=== PATIENT | female | born 1925 | race Caucasian/White ===

== ENCOUNTER 2017-01-31 14:41 | Inpatient (IN) | payer MEDICARE, BC ==
--- NOTE | ~2017-01-31 | CN ---
Consultation Report [facility] [address] [place]. [address] NAME: MARCO A CM : [birth year] STATUS : ADM IN PAT#: [id number] AGE: 89 ADM/REG DATE : 01/31/17 MR#: [id number] REPORT SERV DATE: 02/01/17 DICTATED BY: DATE: REPORT STATUS : Draft TRANSCRIBED BY: MODL DATE: 02/01/17 NEUROLOGY CONSULTATION DATE OF CONSULTATION: 02/01/2017 REASON FOR CONSULT: Left lower extremity weakness, concern for possible stroke. HISTORY OF PRESENT ILLNESS: This is an 89-year-old female who presented to [facility] on 01/31/2017 secondary to acute onset of left lower extremity weakness and presyncopal type of sensation. The patient was playing rummy with friends and when standing up, was noted to have acute difficulties with the left lower extremity, could not move the left lower extremity, but denies any weakness. The patient also was noted to have abnormal sensation, dizzy, felt as if she was about to pass out. Also, the patient never lost consciousness. The patient's symptom resolved after roughly one minute. Bobbin Trucker was otherwise notified and upon arrival, the patient was noted to have apparent bradycardia with heart rate reportedly to be in the 40s. The patient does report a history of arrhythmia as well as bradycardia. Previously evaluated by outside pet care assistant and was noted to have some kind of long-term monitoring, although patient is not aware of the results. The patient has not had any followup with pet care assistant and at baseline, was not taking any anticoagulation. The patient does report a history of "mini-stroke" in the past happened around in 2015, for which the patient was subsequently evaluated at [facility]. The patient afterwards was reported to be taking 325 mg aspirin and reports compliance with aspirin, but does not appear to be taking any Lipitor at home. The patient denies any other symptoms. The patient's previous "mini-stroke" involved left upper extremity weakness which subsequently resolved prior to the hospitalization. No recent history of fever, chills, nausea, vomiting, chest pain, or shortness of breath was otherwise noted. REVIEW OF SYSTEMS: Negative except for those mentioned in the HPI. PAST MEDICAL HISTORY: Significant for hypertension, anxiety, gastroesophageal reflux disease, transient ischemic attack, arrhythmia, prior history of bradycardia with history of evaluation by Holter monitor with outpatient pet care assistant. Also, the patient is unaware of the results of Holter monitoring. The patient has not followed up recently with the pet care assistant. FAMILY HISTORY: Significant for brain tumor as well as cardiac issues. SOCIAL HISTORY: Denies tobacco, alcohol, or recreational drug usage. ALLERGIES: THE PATIENT REPORTS ALLERGY TO PENICILLIN. MEDICATIONS AT HOME: The patient takes aspirin as well as Valium, vitamin D, hydrochlorothiazide, Cozaar, metoprolol, and Prilosec. Consultation Report [facility] [id number] [place]. [address] NAME: MARCO A CM : [birth year] STATUS : ADM IN PAT#: [id number] AGE: 89 ADM/REG DATE : 01/31/17 MR#: [id number] REPORT SERV DATE: 02/01/17 DICTATED BY: DATE: REPORT STATUS : Draft TRANSCRIBED BY: GEOFF DATE: 02/01/17 PHYSICAL EXAMINATION: VITAL SIGNS: At the time of evaluation, the patient overnight was noted to have vital signs with T-max of 98.1, heart rates of 64-100, respirations of 16-19 and blood pressure of 151 to 206 over 66 to 96. GENERAL: The patient is well developed, well nourished, in no acute distress. CARDIOVASCULAR: Irregular. Otherwise, no carotid bruits were auscultated. PULMONARY: Clear to auscultation bilaterally. NEUROLOGICAL EXAMINATION: The patient is alert and oriented to person, place, year, and month. Follows simple and 2-step commands. Mild dysarthria. No aphasia was otherwise noted. The patient reports dysarthria appeared to be mildly worse with prolonged talking with the patient reports spastic-type of sensation with feeling of throat closing up when the patient talks for prolonged period of time. The patient otherwise was noted to have intact registration, mild difficulties with recall. No aphasia was noted. Cranial nerves 2 through 12, pupils equal, round, and reactive to light. Extraocular eye movement was noted to be intact with intact blink to threat responses bilaterally. The patient reports symmetrical facial sensation, was noted to have questionable decreased nasolabial fold on the left. Symmetrical facial expression. Midline tongue. Normal palatal movement. Decreased hearing in the left ear which according to the patient has been chronic. Mildly decreased hearing in the right ear. Patient demonstrated 5/5 bilateral upper and lower extremity strength at the time of evaluation with the patient noted to have mild posture tremor, left greater than right, and question of possible asterixis in the left upper extremity. No cogwheel rigidity was otherwise noted. Normal bcxdhy-er-bzrl examination without ataxia. Gait was not evaluated at the time of evaluation. LABORATORY STUDIES: Demonstrated sodium 145, potassium 4.0, chloride 112, bicarb 23, BUN 27, creatinine 1.14, glucose of 107, calcium of 8.1, magnesium 2.2. At the time of evaluation, the patient was noted to have cholesterol of 180, HDL 43, LDL of 110, and triglyceride of 139. Serum TSH of 1.84. Hemoglobin A1c of 5.7. White blood cell count of 6.9, hemoglobin of 11.6, hematocrit of 34.0, and platelet count of 227. CT scan of the brain demonstrated no acute process with MRI of the brain demonstrated no acute process. Generalized atrophy was seen. MRA of the head and neck demonstrated no significant stenosis. Internal carotid artery demonstrated no significant blockage or stenosis. Echocardiogram is pending. IMPRESSION: 1. Left lower extremity weakness. 2. Presyncopal episode. Patient's symptoms since resolved with the patient reports presyncopal type of sensation associated with left lower extremity weakness with the patient's heart rates reported to be around 40s upon EMS arrival. The patient does have history of bradycardia and arrhythmia, question of cardiac-related events. We are recommending increasing aspirin back to 325 mg p.o. daily which the patient was on at baseline. We will start the patient on Lipitor 40 mg p.o. at bedtime. Echocardiogram Consultation Report [address] [place]. [address] NAME: MARCO A CM : [birth year] STATUS : ADM [facility]#: [id number] AGE: 89 ADM/REG DATE : 01/31/17 MR#: [id number] REPORT SERV DATE: 02/01/17 DICTATED BY: DATE: REPORT STATUS : Draft TRANSCRIBED BY: GEOFF DATE: 02/01/17 is pending. We would like Cardiology to evaluate for repeat Holter monitor versus possible loop recorder. Otherwise, we will also check orthostatic vitals every shift secondary to the patient's reports of difficulty talking with prolonged speech. We will obtain myasthenia gravis panel as well. PLAN: 1. Increase aspirin to 325 mg p.o. daily. 2. Lipitor 40 mg p.o. at bedtime. 3. Echocardiogram which is pending. 4. Ammonia, vitamin B12, rheumatoid factor, as well as myasthenia gravis panel with morning labs. 5. Question of Holter monitor versus loop recorder. [facility]/MODL Jose Chavez MD / [id number] CC: DO REJI Dutton MUHAMMAD
--- NOTE | ~2017-01-31 | DS ---
Discharge Summary [facility] [address] [place]. [address] NAME: MARCO A CM : [birth year] STATUS : DIS IN PAT#: [id number] AGE: 89 ADM/REG DATE : 01/31/17 MR#: [id number] REPORT SERV DATE: 02/03/17 DICTATED BY: DANIELLE RAI DATE: 02/02/17 REPORT STATUS : Draft TRANSCRIBED BY: MODL DATE: 02/02/17 ADMISSION DATE: 01/31/2017 DISCHARGE DATE: 02/02/2017 HOSPITAL COURSE: An 89-year-old female with known history of TIA in the past, left upper extremity weakness that had resolved, known history of GERD, hypertension, unclear arrhythmia, and history of supposed bradyarrhythmia. Holter monitor by carpenter general in [place], apparently was reportedly benign. Known surgical history, hysterectomy and eye surgery. The patient comes in with left leg weakness and thought to have had bradycardia in the 40s. CT of the brain did not show any acute pathology, seen to have some PACs with telemetry here initially. She was evaluated by Cardiology given this possible inappropriate bradycardia, for which the patient was stated she became a bit confused while she was playing cards at a [facility] home. She stood up and stumbled and felt a bit dizzy. She was concerned for bradycardia, but only documented stress, sinus rhythm with PACs, reasonable rate of 70 beats per minute. Cardiology was not sure this is related to symptomatic bradycardia. As a result, to rule out any stroke pathology regarding her dizziness, the patient had an MRI after CT was negative. No acute pathology except moderate diffuse cerebral involutional changes, prominent perivascular space in inferior right basal ganglia. She also had an MRA of the neck as well, within normal limits. Given this inappropriate bradycardia, AV node dysfunction, had an echocardiogram done which showed an EF of 65%. Normal RV function and size. No valvulopathy. Bubble study was negative; however, this is a poor quality film due to acoustic windows. Her left atrium was normal size and her right atrium was also normal size. As a result, the patient does have a 24-hour Holter. Follow up with PCP as an outpatient. Cardiology signed off. The patient was seen to be significantly orthostatic that likely is contributing. As a result, she is taking at least 2 minutes to go from a supine to sitting and then sitting to standing position. She needs to be worked up for autonomic neuropathy as an outpatient. Her blood pressure should be 130 to 140 given her risk of orthostasis associated syncope. The patient is amenable for discharge, and in fact she wants to go home immediately. As a result, discharge medications will be: 1. Aspirin enteric coated 81 p.o. daily. 2. Vitamin D home dose. 3. Cozaar 50 p.o. daily. Increased from home dose. 4. Metoprolol tartrate 25 p.o. b.i.d. 5. Multivitamin tablet p.o. daily. 6. Prilosec home dose. 7. Valium p.r.n. We would try to wean that off as an outpatient given the risk of orthostasis worsening. She no longer will be given HCTZ as an outpatient.. CONSULTS: Cardiology. PROCEDURES: Echocardiogram. Discharge Summary [address] [address] NAME: MARCO A CM : [birth year] STATUS : DIS IN PAT#: [id number] AGE: 89 ADM/REG DATE : 01/31/17 MR#: [id number] REPORT SERV DATE: 02/03/17 DICTATED BY: DANIELLE RAI DATE: 02/02/17 REPORT STATUS : Draft TRANSCRIBED BY: GEOFF DATE: 02/02/17 All questions were answered. It took well over 30 minutes to do. VERENICE/GEOFF Danielle Rai DO / [id number] CC: DO REJI Dutton MUHAMMAD
--- NOTE | ~2017-01-31 | HP ---
History And Physical [facility] [address] [place]. [address] NAME: MARCO A CM : [birth year] STATUS : ADM IN [facility]#: [id number] AGE: 89 ADM/REG DATE : 01/31/17 MR#: [id number] REPORT SERV DATE: 02/01/17 DICTATED BY: PATIENCE HASTINGS DATE: 01/31/17 REPORT STATUS : Draft TRANSCRIBED BY: GEOFF DATE: 01/31/17 DATE OF ADMISSION: 01/31/2017 CHIEF COMPLAINT: Left leg weakness. HISTORY OF PRESENT ILLNESS: This is an 89-year-old female with past medical history of hypertension and TIAs for which the patient states for her last TIA, she had left upper extremity weakness, which resolved. However, the patient drove herself to [facility]. She lives alone and while there, she was playing rummy with some colleagues. The patient states that she stood up to ambulate to the restroom and felt her left foot felt funny, felt weak, and she felt as though if she would take another step, she would fall or pass out. The patient states that her symptoms lasted for approximately one minute. EMS was called. The patient states that she had no dizziness, but had a strange feeling in her head and also felt shaky. She denied any chest pain or shortness of breath, but did have some palpitations. The patient states that her occurrences began around 10:30 or 11 o'clock this morning. She was brought by EMS, however, the patient stated en route she did have some bradycardia in the 40s, blood pressure was 168/89. The patient did not have any recurrences of her symptoms. She was brought to [facility] ER and was seen by Dr. Byers, who ordered CT of the brain that showed no acute findings, but the patient was found to have an arrhythmia, some junctional rhythm with occasional bradycardia, however, currently heart rates ranging 70-90, and the hospitalist was called to admit the patient to the hospital. The patient has family members including the son and several daughters and [id number] at bedside assisting with the patient's history. The patient states that approximately a year ago, the patient was diagnosed with irregular heart rhythm and seen by a big data lead in [place] by the name of Dr. Morales. She was given Holter monitor and diagnosed with occasional bradycardia and then tachycardia, but later, the patient was discharged from the big data lead office stating the patient did not require any more treatment, but was placed on metoprolol per patient's history. The patient denied any subjective fever or chills. No constipation. No diarrhea. REVIEW OF SYSTEMS: Please refer to HPI. PAST MEDICAL HISTORY: History of hypertension, GERD, TIA, arrhythmia, bradycardia, had a Holter monitor by big data lead in [place] for which the patient is unsure of the name, but states it is Dr. Morales. PAST SURGICAL HISTORY: Hysterectomy and eye surgery. SOCIAL HISTORY: No tobacco. Drinks occasional one to two small wine glasses every other week. Does not use any assistive devices, still currently driving. FAMILY HISTORY: Brain tumor in sibling. Also, her biological father had unknown cardiac problems. History And Physical [address] [address] NAME: MARCO A CM : [birth year] STATUS : ADM IN [facility]#: [id number] AGE: 89 ADM/REG DATE : 01/31/17 MR#: [id number] REPORT SERV DATE: 02/01/17 DICTATED BY: PATIENCE HASTINGS DATE: 01/31/17 REPORT STATUS : Draft TRANSCRIBED BY: GEOFF DATE: 01/31/17 ALLERGIES: PENICILLIN. HOME MEDICATIONS: Include valium 5 mg p.o. q.h.s. p.r.n., vitamin D 50,000 units p.o. q. Tuesday, hydrochlorothiazide 25 mg p.o. daily, losartan 25 mg p.o. daily, metoprolol succinate ER 25 mg p.o. b.i.d., Prilosec 40 mg p.o. daily. PHYSICAL EXAMINATION: VITAL SIGNS: Temperature of 98.1, blood pressure 162/70 with a pulse of 90, respiration of 19, and saturating 98% on room air. GENERAL: The patient is alert and oriented, currently in no distress, well groomed, has on makeup, lipstick. HEENT: Pupils equal, round, and reactive to light. Extraocular muscles are intact. Anicteric sclera. CARDIOVASCULAR: S1 and S2, occasional ectopic beat. No appreciated rubs or gallops. RESPIRATORY: Clear to auscultation bilaterally. No wheezes or crackles. No signs of tachypnea. ABDOMEN: Positive bowel sounds. Soft, nontender. No rebound. No fluid wave. No distention. EXTREMITIES: Warm, bilateral lower extremities pulses. No edema. NEURO: Cranial nerves II through XII grossly intact with 4/5 upper and lower extremity strength bilaterally. No neuro focal deficits. SKIN: Poor skin turgor, dry. DATA: EKG noted as some junctional rhythm. No ST elevation with a ventricular rate of 62. LABORATORY DATA: Sodium 141, potassium 4.2, chloride 107, bicarbonate of 25, BUN of 32 with a creatinine of 1.19 with a glucose of 91, magnesium 1.8, T bilirubin of 0.3, alkaline phosphatase of 74, ALT of 15, AST of 15, and troponin less than 0.02. White count of 8.8 with hemoglobin of 12.5, platelet count of 279. INR of 1.1. UA with a specific gravity of 1.008. Negative protein and negative leukocyte esterase, negative nitrites, 1 white blood cell. ASSESSMENT AND PLAN: 1. Transient ischemic attack. 2. Presyncope. 3. Arrhythmia. 4. Hypertension. 5. Acute kidney injury. 6. Hypomagnesemia. We will check MRI/MRA of the brain and neck and check a fasting lipid panel, admit to cardiac telemetry. Continue with neuro checks and also was given aspirin. Also ER physician is to consult Neurology and notify them of the patient's admission and for evaluation. Also, we will replace the patient's magnesium and consult Cardiology for her known arrhythmia. Also, we will give IV fluids for mild acute kidney injury and hold her hydrochlorothiazide. With discussion with the patient her code status, initially the History And Physical [address] [address] NAME: MARCO A CM : [birth year] STATUS : ADM IN [facility]#: [id number] AGE: 89 ADM/REG DATE : 01/31/17 MR#: [id number] REPORT SERV DATE: 02/01/17 DICTATED BY: PATIENCE HASTINGS DATE: 01/31/17 REPORT STATUS : Draft TRANSCRIBED BY: GEOFF DATE: 01/31/17 patient was DNR/DNI, then changed her mind to full code. Dr. Byers, ER physician has consulted Dr. Mercedes as well as Neurology and Dr. Moise, Cardiology and has updated the specialist. MADI/MODL Patience Hastings M.D. / [id number] CC: Primitivo Doe MUHAMMAD
--- NOTE | ~2017-01-31 | CN ---
Consultation Report [facility] [address] [place]. [address] NAME: MARCO A CM : [birth year] STATUS : ADM IN [facility]#: [id number] AGE: 89 ADM/REG DATE : 01/31/17 MR#: [id number] REPORT SERV DATE: 02/01/17 DICTATED BY: JOSH SALEH DATE: 01/31/17 REPORT STATUS : Draft TRANSCRIBED BY: MODLinda DATE: 01/31/17 CARDIOVASCULAR CONSULTATION DATE OF CONSULTATION: 01/31/2017 CHIEF COMPLAINT: Confusion, bradycardia, irregular heartbeat. HISTORY OF PRESENT ILLNESS: Ms Cm is an 89-year-old woman with a history of premature atrial contractions, who was placed on Toprol-XL 25 mg twice a day several years ago by honey extractor she has seen only once or twice. She was playing cards with people at her halfway home. She evidently became a bit confused. She stood up and stumbled and felt a bit dizzy. She did not actually have a syncopal spell. There was some concern about bradycardia, but the only documented strips are sinus rhythm with premature atrial contractions at a reasonable rate of 70 beats per minute. No chest pain. PAST MEDICAL HISTORY: 1. Reported history of TIA. 2. Premature atrial contractions as above. 3. Hypertension. SOCIAL HISTORY: She does not smoke or drink alcohol. FAMILY HISTORY: There is no family history of early coronary disease. ALLERGIES: INCLUDE PENICILLIN. MEDICATIONS: Include Valium as needed, vitamin D, hydrochlorothiazide 25 mg once a day, Cozaar 25 mg daily, metoprolol extended release 25 twice a day, Prilosec. REVIEW OF SYSTEMS: A complete review of systems was obtained, which is negative in detail except as mentioned above in the HPI. PHYSICAL EXAMINATION: BLOOD PRESSURE: 130/70. PULSE: 70 and slightly irregular. RESPIRATIONS: 14. GENERAL: Comfortable in no acute distress. HEENT: Anicteric. No xanthelasma. Lips without cyanosis. NECK: No JVD. Carotids 2+ and symmetric. No carotid bruits. LUNGS: CTA bilaterally. No wheezes or rhonchi. No accessory muscle use. COR: RRR. Normally placed PMI. Normal S1 and S2. No murmurs, rubs or gallops. ABD: Soft, nontender, nondistended. Normal bowel sounds. No abdominal bruits. EXT: No clubbing, cyanosis or edema 2+ and symmetric distal pulses. SKIN: Warm. Dry. No venous stasis changes. MS: No kyphosis. Consultation Report [facility] [address] [place]. [address] NAME: MARCO A CM : [birth year] STATUS : ADM IN PAT#: [id number] AGE: 89 ADM/REG DATE : 01/31/17 MR#: [id number] REPORT SERV DATE: 02/01/17 DICTATED BY: JOSH SALEH DATE: 01/31/17 REPORT STATUS : Draft TRANSCRIBED BY: MODL DATE: 01/31/17 NEURO/PSYCH: Oriented x3. No anxiety or depression. LABORATORY STUDIES: White count of 8.8, hematocrit of 37, creatinine of 1.19, troponin of less than 0.02, INR of 1.1. EKG: A 12-lead EKG shows sinus rhythm with frequent premature atrial contractions in a pattern of bigeminy, heart rate 62 beats per minute. Nonspecific T-wave abnormalities noted. IMPRESSION: This is an 89-year-old woman with some dizziness, mechanical fall, and presyncope. I am not sure that this is related to symptomatic bradycardia. Her EKGs only show premature atrial contractions. I agree with plans for an echocardiogram and further telemetry monitoring. We will hold her beta-tesfaye in the short term. CYNTHIA/GEOFF Josh Saleh M.D. / [id number] CC: Primitivo Doe MUHAMMAD
[2017-01-31 15:37] LABS: ASCORBIC ACID (UR NOT ORDER) NEG (NEG); BILIRUBIN, URINE NEGATIVE (NEG); ER URINALYSIS TAT 0 Hrs 13 Mins; KETONE, URINE NEGATIVE (NEG); LEUKOCYTE ESTERASE(NOT OR NEG (NEG); NITRITE (URINE) NEG (NEG); WBC (NOT ORDERED) (RFLEX) 1 (0-5)
[2017-01-31 15:48] LABS: BASOPHILS 0.2 %; BASOPHILS ABSOLUTE 0.02 10/3/uL (0.0-0.16); EOSINOPHILS 1.4 %; EOSINOPHILS ABSOLUTE 0.12 10/3/uL (0.0-0.53); ER CBC TAT 0 Hrs 08 Mins; HEMOGLOBIN 12.5 g/dL (12.0-16.0); IMMATURE GRANULOCYTES 0.2 %; IMMATURE GRANULOCYTES ABSOLUTE 0.02 10/3/uL (0.0-0.11); LYMPHOCYTES 24.8 %; LYMPHOCYTES ABSOLUTE 2.18 10/3/uL (0.67-4.30); MEAN CORPUS HGB CONC 33.8 g/dL (32.0-36.0); MEAN CORPUSCULAR HEMOGLOB 30.8 pg (26.0-34.0); MEAN CORPUSCULAR VOLUME 91.1 fL (80-100); MEAN PLATELET VOLUME 10.3 fL (9.2-13.0); MONOCYTES 7.2 %; MONOCYTES ABSOLUTE 0.63 10/3/uL (0.21-1.20); NEUTROPHILS 66.2 %; NEUTROPHILS ABSOLUTE 5.81 10/3/uL (2.02-8.40); PLATELET COUNT 279 10/3/uL (150-400); RBC DISTRIBUTION WIDTH 12.9 % (12.0-16.0); RED CELL COUNT 4.06 10/6/uL (4.0-5.6); WHITE BLOOD CELLS 8.8 10/3/uL (4.5-10.5)
[2017-01-31 15:49] LABS: MANUAL DIFF NO %
[2017-01-31 16:04] LABS: A/G RATIO 0.9 (0.7-1.9); ALBUMIN 3.2 G/DL (3.5-5.0); ALKALINE PHOSPHATASE 74 U/L (45-117); BUN (BLOOD UREA NITROGEN) 32 MG/DL (6-23); CALCIUM, SERUM 8.6 MG/DL (8.5-10.4); CHLORIDE, SERUM 107 MMOL/L (96-112); CO2 (CARBON DIOXIDE) 25 MMOL/L (24-34); CREATININE 1.19 MG/DL (0.55-1.02); GFR AFRICAN AMERICAN 47 ML/MIN (>=60); GFR NON AFRICAN AMERICAN 40 ML/MIN (>=60); GLOBULIN 3.7 G/DL (2.5-4.1); GLUCOSE, SERUM 91 MG/DL (60-99); POTASSIUM, SERUM 4.2 MMOL/L (3.5-5.3); SGOT(AST) 15 U/L (5-40); SGPT(ALT) 15 U/L (5-65); SODIUM, SERUM 141 MMOL/L (135-148); TOTAL BILIRUBIN 0.3 MG/DL (0-1.2); TOTAL PROTEIN 6.9 G/DL (6.0-8.5); TROPONIN I <0.02 NG/ML (<0.05)
[2017-01-31 16:06] LABS: INTERNATIONAL NORMAL RATI 1.1 UNITS (-); PARTIAL THROMBO TIME 33.7 SEC (22.5-37.2); PROTIME (NOT ORD) 14.2 SEC (12.0-14.5)
[2017-01-31] MEDS ORDERED: V5 PO (18:19)
[2017-01-31] MEDS ORDERED: HYDROCHLOROT25 MG PO (18:19)
[2017-01-31] MEDS ORDERED: TOPXL25 PO (18:19)
[2017-01-31] MEDS ORDERED: VITD PO (18:20)
[2017-01-31] MEDS ORDERED: COZ25 PO (18:20)
[2017-01-31] MEDS ORDERED: PRILOSEC40 MG PO (18:20)
[2017-02-01 00:09] LABS: CK-MB 1.4 NG/ML; CPK 69 U/L (0-200); TROPONIN I <0.02 NG/ML (<0.05)
[2017-02-01 05:29] LABS: BASOPHILS 0.6 %; BASOPHILS ABSOLUTE 0.04 10/3/uL (0.0-0.16); EOSINOPHILS 1.9 %; EOSINOPHILS ABSOLUTE 0.13 10/3/uL (0.0-0.53); HEMOGLOBIN 11.6 g/dL (12.0-16.0); IMMATURE GRANULOCYTES 0.1 %; IMMATURE GRANULOCYTES ABSOLUTE 0.01 10/3/uL (0.0-0.11); LYMPHOCYTES 38.4 %; LYMPHOCYTES ABSOLUTE 2.64 10/3/uL (0.67-4.30); MANUAL DIFF NO %; MEAN CORPUS HGB CONC 34.1 g/dL (32.0-36.0); MEAN CORPUSCULAR HEMOGLOB 31.4 pg (26.0-34.0); MEAN CORPUSCULAR VOLUME 92.1 fL (80-100); MEAN PLATELET VOLUME 10.4 fL (9.2-13.0); MONOCYTES 8.9 %; MONOCYTES ABSOLUTE 0.61 10/3/uL (0.21-1.20); NEUTROPHILS 50.1 %; NEUTROPHILS ABSOLUTE 3.44 10/3/uL (2.02-8.40); PLATELET COUNT 227 10/3/uL (150-400); RBC DISTRIBUTION WIDTH 12.9 % (12.0-16.0); RED CELL COUNT 3.69 10/6/uL (4.0-5.6); WHITE BLOOD CELLS 6.9 10/3/uL (4.5-10.5)
[2017-02-01 05:56] LABS: CALCIUM, SERUM 8.1 MG/DL (8.5-10.4); CHLORIDE, SERUM 112 MMOL/L (96-112); CHOL/HDL RATIO(NOT ORDER) 4.2 (0-5); CHOLESTEROL 180 MG/DL (< 200); CO2 (CARBON DIOXIDE) 23 MMOL/L (24-34); CREATININE 1.14 MG/DL (0.55-1.02); GFR AFRICAN AMERICAN 49 ML/MIN (>=60); GFR NON AFRICAN AMERICAN 43 ML/MIN (>=60); GLUCOSE, SERUM 107 MG/DL (60-99); HDL CHOLESTEROL 43 MG/DL (> 49); LDL CHOLESTEROL 110 MG/DL (< 130); NON-HDL CHOLESTEROL 137 MG/DL (< 160); SODIUM, SERUM 145 MMOL/L (135-148); TRIGLYCERIDE 139 MG/DL (< 150)
[2017-02-01 06:11] LABS: BUN (BLOOD UREA NITROGEN) 27 MG/DL (6-23)
[2017-02-02 08:17] LABS: BASOPHILS 0.1 %; BASOPHILS ABSOLUTE 0.01 10/3/uL (0.0-0.16); EOSINOPHILS 2.2 %; EOSINOPHILS ABSOLUTE 0.16 10/3/uL (0.0-0.53); HEMOGLOBIN 11.7 g/dL (12.0-16.0); IMMATURE GRANULOCYTES 0.1 %; IMMATURE GRANULOCYTES ABSOLUTE 0.01 10/3/uL (0.0-0.11); LYMPHOCYTES 26.2 %; LYMPHOCYTES ABSOLUTE 1.87 10/3/uL (0.67-4.30); MEAN CORPUS HGB CONC 33.4 g/dL (32.0-36.0); MEAN CORPUSCULAR VOLUME 92.6 fL (80-100); MEAN PLATELET VOLUME 10.7 fL (9.2-13.0); MONOCYTES 9.1 %; MONOCYTES ABSOLUTE 0.65 10/3/uL (0.21-1.20); NEUTROPHILS 62.3 %; NEUTROPHILS ABSOLUTE 4.45 10/3/uL (2.02-8.40); PLATELET COUNT 259 10/3/uL (150-400); RBC DISTRIBUTION WIDTH 13.2 % (12.0-16.0); RED CELL COUNT 3.78 10/6/uL (4.0-5.6); WHITE BLOOD CELLS 7.2 10/3/uL (4.5-10.5)
[2017-02-02 08:18] LABS: MANUAL DIFF NO %
[2017-02-02 09:02] LABS: CALCIUM, SERUM 8.6 MG/DL (8.5-10.4); CHLORIDE, SERUM 110 MMOL/L (96-112); CO2 (CARBON DIOXIDE) 26 MMOL/L (24-34); CREATININE 1.08 MG/DL (0.55-1.02); GFR AFRICAN AMERICAN 53 ML/MIN (>=60); GFR NON AFRICAN AMERICAN 45 ML/MIN (>=60); GLUCOSE, SERUM 100 MG/DL (60-99); PHOSPHORUS, SERUM 2.5 MG/DL (2.5-4.5); POTASSIUM, SERUM 4.2 MMOL/L (3.5-5.3); SODIUM, SERUM 143 MMOL/L (135-148)
[2017-02-02 09:06] LABS: BUN (BLOOD UREA NITROGEN) 22 MG/DL (6-23)
[2017-02-02] MEDS ORDERED: HALF81 PO (16:02)
[2017-02-02] MEDS ORDERED: COZ50 PO (16:03)
[2017-02-02] MEDS ORDERED: LOP25 PO (16:04)
[2017-02-02] MEDS ORDERED: THERGRANM PO (16:05)
[2017-02-09 08:09] LABS: ACETYLCHOLINE REC BINDING AB <0.30 nmol/L (<0.31); ACETYLCHOLINE RECEPT BLOCK AB <15 % (<15); ACETYLCHOLINE RECEPTOR MOD AB 14 % (<32); STRIATED MUSCLE ANTIBODY Negative (NEG); STRIATED MUSCLE ANTIBODY TITER ND
== END 2017-02-02 17:02 | disposition home or self-care (01) | DRG 684 ==
LOC: ER 14:41 → 1SO 19:49
PROVIDERS: Emergency Medicine; Internal Medicine; Psychiatry & Neurology Neurology
DX: N17.9 Acute kidney failure, unspecified (principal); E86.0 Dehydration; E83.42 Hypomagnesemia; R47.1 Dysarthria and anarthria; I10 Essential (primary) hypertension; K21.9 Gastro-esophageal reflux disease without esophagitis; I49.1 Atrial premature depolarization; W18.30XA Fall on same level, unspecified, initial encounter; Z79.82 Long term (current) use of aspirin; Z79.899 Other long term (current) drug therapy; Z86.73 Personal history of transient ischemic attack (TIA), and cerebral infarction without residual deficits; Z88.0 Allergy status to penicillin
CPT/HCPCS: 70450; 70544; 70547; 70551; 71010; 80048; 80053; 80061; 81001; 82140; 82550; 82553; 82607; 82962; 83036; 83519; 83519-59; 83735; 84100; 84443; 84484; 85025; 85610; 85730; 86255; 86431; 92610-GN; 93005; 93306; 97161-GP; 99285; A9270-GY; G8978-CH-GP; G8979-CH-GP; G8980-CH-GP; G8996-CI-GN; G8997-CI-GN; G8998-CI-GN; J0360